=== PATIENT | male | born 1980 | race Caucasian/White ===

== ENCOUNTER 2017-02-01 10:23 | Emergency (ER) | payer OTHER | END 2017-02-01 11:39 | disposition home or self-care (01) | LOC: FER 10:23 | DX: K08.89 Other specified disorders of teeth and supporting structures (principal); Z98.890 Other specified postprocedural states | CPT/HCPCS: 99282 ==

== ENCOUNTER 2017-02-01 23:47 | Emergency (ER) | payer OTHER | END 2017-02-02 00:26 | disposition home or self-care (01) | LOC: FER 23:47 | DX: K08.89 Other specified disorders of teeth and supporting structures (principal); Z79.899 Other long term (current) drug therapy; Z88.0 Allergy status to penicillin | CPT/HCPCS: 99282 ==